=== PATIENT | female | born 1965 | race Caucasian/White ===

== ENCOUNTER 2017-09-11 15:28 | Emergency (ER) | payer BC ==
[~2017-09-11] VITALS: Ht 160 cm; Wt 93.0 kg
[~2017-09-11 15:28] MED LIST: DIAZ-351 PO; MILN50TA PO; SYN0.025T PO; TRAM50TA2 PO
[2017-09-11 16:01] LABS: BASOPHILS % (AUTO) 0.5 % (0-1); EOSINOPHILS # (AUTO) 0.1 X10'3 (0-0.9); EOSINOPHILS % (AUTO) 1.8 % (0-6); HEMATOCRIT 39.7 % (35.0-45.0); HEMOGLOBIN 13.5 g/dl (12.0-16.0); LYMPHOCYTES # (AUTO) 2.2 X10'3 (1.1-4.8); LYMPHOCYTES % (AUTO) 28.1 % (21-51); MEAN CORPUSCULAR HEMOGLOBIN 31.5 PG (27.0-31.0); MEAN CORPUSCULAR HGB CONC 34.1 % (33.0-36.5); MEAN CORPUSCULAR VOLUME 92.5 FL (78-98); MEAN PLATELET VOLUME 8.8 FL (7.4-10.4); MONOCYTES # (AUTO) 0.4 X10'3 (0-0.9); MONOCYTES % (AUTO) 5.3 % (2-12); NEUTROPHILS % (AUTO) 64.3 % (42-75); PLATELET COUNT 276 X10'3 (140-440); RED BLOOD COUNT 4.29 X10'6 (4.20-5.60); RED CELL DISTRIBUTION WIDTH 14.1 % (11.5-14.5); WHITE BLOOD COUNT 7.7 X10'3 (4.5-11.0)
[2017-09-11 16:18] LABS: ALANINE AMINOTRANSFERASE 32 U/L (12-78); ALKALINE PHOSPHATASE 134 IU/L (46-116); ANION GAP 11 (8-16); ASPARTATE AMINO TRANSFERASE 29 U/L (10-37); BILIRUBIN,TOTAL 0.5 MG/DL (0.1-1.0); BLOOD UREA NITROGEN 23 MG/DL (7-18); BUN/CREATININE RATIO 19.3 (6.6-38.0); CALCIUM 10.1 MG/DL (8.5-10.1); CHLORIDE 107 MMOL/L (99-107); CREATININE 1.19 MG/DL (0.40-0.90); GLUCOSE 79 MG/DL (70-104); POTASSIUM 3.5 MMOL/L (3.5-5.1); SODIUM 144 MMOL/L (135-145); TOTAL CARBON DIOXIDE 25.9 MMOL/L (24-32); TOTAL PROTEIN 8.2 G/DL (6.4-8.2); eGFR 47 ML/MIN
[2017-09-11 21:02] VITALS: BP 158/93
== END 2017-09-11 21:04 | disposition home or self-care (01) ==
LOC: ER 15:29
DX: R07.89 Other chest pain (principal); N28.9 Disorder of kidney and ureter, unspecified; E86.0 Dehydration; R11.10 Vomiting, unspecified; R42 Dizziness and giddiness; R06.02 Shortness of breath; I10 Essential (primary) hypertension; G43.909 Migraine, unspecified, not intractable, without status migrainosus; Z88.8 Allergy status to other drugs, medicaments and biological substances; Z79.899 Other long term (current) drug therapy
CPT/HCPCS: 36415; 71045; 80053; 84484; 85025; 93005; 99285

== ENCOUNTER 2018-05-09 10:19 | Emergency (ER) | payer BC ==
[~2018-05-09] VITALS: Ht 162.6 cm; Wt 90.0 kg
[2018-05-09 11:14] LABS: BASOPHILS % (AUTO) 0.7 % (0-1); EOSINOPHILS % (AUTO) 0 % (0-6); HEMOGLOBIN 13.8 g/dl (12.0-16.0); LYMPHOCYTES # (AUTO) 1.8 X10'3 (1.1-4.8); LYMPHOCYTES % (AUTO) 29.6 % (21-51); MEAN CORPUSCULAR HGB CONC 33.7 % (33.0-36.5); MEAN CORPUSCULAR VOLUME 95.1 FL (78-98); MEAN PLATELET VOLUME 8.5 FL (7.4-10.4); MONOCYTES # (AUTO) 0.4 X10'3 (0-0.9); MONOCYTES % (AUTO) 6.3 % (2-12); NEUTROPHILS # (AUTO) 3.8 X10'3 (1.8-7.7); NEUTROPHILS % (AUTO) 63.4 % (42-75); PLATELET COUNT 303 X10'3 (140-440); RED BLOOD COUNT 4.31 X10'6 (4.20-5.60); RED CELL DISTRIBUTION WIDTH 13.6 % (11.5-14.5)
[2018-05-09 11:27] LABS: PARTIAL THROMBOPLASTIN TIME 28 SECONDS (22-32); PROTHROMBIN TIME 9.8 SECONDS (9.0-12.0)
[2018-05-09 11:30] LABS: ALANINE AMINOTRANSFERASE 62 U/L (12-78); ALBUMIN 3.8 G/DL (3.4-5.0); ALBUMIN/GLOBULIN RATIO 0.9 (1.1-1.5); ALKALINE PHOSPHATASE 223 IU/L (46-116); ANION GAP 9 (8-16); ASPARTATE AMINO TRANSFERASE 48 U/L (10-37); BILIRUBIN,TOTAL 0.5 MG/DL (0.1-1.0); BLOOD UREA NITROGEN 10 MG/DL (7-18); BUN/CREATININE RATIO 11.1 (6.6-38.0); CALCIUM 9.6 MG/DL (8.5-10.1); CHLORIDE 105 MMOL/L (99-107); GLUCOSE 99 MG/DL (70-104); POTASSIUM 4.3 MMOL/L (3.5-5.1); SODIUM 143 MMOL/L (135-145); TOTAL CARBON DIOXIDE 29.1 MMOL/L (24-32); eGFR 65 ML/MIN
[2018-05-09 12:09] VITALS: BP 124/81
== END 2018-05-09 12:11 | disposition home or self-care (01) ==
LOC: ER 10:20
DX: I10 Essential (primary) hypertension (principal); Z88.8 Allergy status to other drugs, medicaments and biological substances; Z79.899 Other long term (current) drug therapy
CPT/HCPCS: 36415; 71045; 80053; 84484; 85025; 85610; 85730; 93005; 99285

== ENCOUNTER 2022-03-04 09:20 | Emergency (ER) | payer MEDICARE, BC ==
[2022-03-04] MEDS ORDERED: VALA500T41 PO (09:55)
[2022-03-04] MEDS ORDERED: METO-411 PO (09:55)
[2022-03-04] MEDS ORDERED: CYCL-1 PO (09:55)
[2022-03-04] MEDS ORDERED: URSO300C2 (09:55)
[2022-03-04] MEDS ORDERED: MELO-102 PO (09:55)
[2022-03-04 10:20] LABS: BASOPHILS # (AUTO) 0.1 X10'3 (0-0.2); BASOPHILS % (AUTO) 0.9 % (0-1); EOSINOPHILS # (AUTO) 0.1 X10'3 (0-0.9); EOSINOPHILS % (AUTO) 1.8 % (0-6); HEMATOCRIT 37.5 % (35.0-45.0); HEMOGLOBIN 12.8 g/dl (12.0-16.0); LYMPHOCYTES # (AUTO) 1.8 X10'3 (1.1-4.8); LYMPHOCYTES % (AUTO) 28.8 % (21-51); MEAN CORPUSCULAR HEMOGLOBIN 33.1 PG (27.0-31.0); MEAN CORPUSCULAR HGB CONC 34.1 g/dL (33.0-36.5); MEAN CORPUSCULAR VOLUME 97.1 FL (78-98); MONOCYTES # (AUTO) 0.5 X10'3 (0-0.9); MONOCYTES % (AUTO) 7.9 % (2-12); NEUTROPHILS # (AUTO) 3.7 X10'3 (1.8-7.7); NEUTROPHILS % (AUTO) 60.6 % (42-75); PLATELET COUNT 264 X10'3 (140-440); RED BLOOD COUNT 3.86 X10'6 (4.20-5.60); RED CELL DISTRIBUTION WIDTH 12.9 % (11.5-14.5); WHITE BLOOD COUNT 6.1 X10'3 (4.5-11.0)
[2022-03-04 10:38] LABS: ALANINE AMINOTRANSFERASE 25 U/L (12-78); ALBUMIN 3.7 G/DL (3.4-5.0); ALKALINE PHOSPHATASE 135 IU/L (46-116); ANION GAP 8 (8-16); ASPARTATE AMINO TRANSFERASE 21 U/L (10-37); BILIRUBIN,TOTAL 0.5 MG/DL (0.1-1.0); BLOOD UREA NITROGEN 8 MG/DL (7-18); BUN/CREATININE RATIO 8.6 (6.6-38.0); CALCIUM 9.1 MG/DL (8.5-10.1); CHLORIDE 108 MMOL/L (99-107); CREATININE 0.93 MG/DL (0.40-0.90); GLUCOSE 111 MG/DL (70-104); POTASSIUM 3.5 MMOL/L (3.5-5.1); SODIUM 145 MMOL/L (135-145); TOTAL CARBON DIOXIDE 28.6 MMOL/L (24-32); TOTAL PROTEIN 7.3 G/DL (6.4-8.2); eGFR 62 ML/MIN
[2022-03-04 11:32] VITALS: BP 164/93
== END 2022-03-04 11:20 | disposition home or self-care (01) ==
LOC: ER 09:21
DX: R55 Syncope and collapse (principal); R42 Dizziness and giddiness; I10 Essential (primary) hypertension; G43.909 Migraine, unspecified, not intractable, without status migrainosus; M79.7 Fibromyalgia; Z72.89 Other problems related to lifestyle; Z88.8 Allergy status to other drugs, medicaments and biological substances; Z79.899 Other long term (current) drug therapy; Z79.2 Long term (current) use of antibiotics
CPT/HCPCS: 36415; 71045; 80053; 83880; 84484; 85025; 93005; 99285

== ENCOUNTER 2024-07-07 17:09 | Emergency (ER) | payer MEDICARE, BC ==
[~2024-07-07] VITALS: Ht 162.6 cm; Wt 88.4 kg
[~2024-07-07 17:09] MED LIST changes: +BUPR300T53 PO; -DIAZ-351 PO; +LEVO100T PO; +LISI10TA27 PO; +METO100T7 PO; -MILN50TA PO; -SYN0.025T PO; -TRAM50TA2 PO; +URSO300C2 PO; +VALA500T41 PO
[2024-07-07 17:15] VITALS: BP 180/82; PULSE 66; O2SAT 98
[2024-07-07] MEDS ORDERED: iohexol 350MG/ML 100ml bottle IV ONE (17:20)
[2024-07-07 17:37] LABS: STREP A SCREEN NEGATIVE (Neg)
[2024-07-07 19:09] VITALS: RESP 16; TEMP 98.5
== END 2024-07-07 19:09 | disposition home or self-care (01) ==
LOC: ER 17:09
DX: J39.2 Other diseases of pharynx (principal); H92.01 Otalgia, right ear; I10 Essential (primary) hypertension; M79.7 Fibromyalgia; G43.909 Migraine, unspecified, not intractable, without status migrainosus; Z88.8 Allergy status to other drugs, medicaments and biological substances; Z79.899 Other long term (current) drug therapy
CPT/HCPCS: 87081; 87880; 99283; Q9967

== ENCOUNTER 2024-10-04 02:48 | Emergency (ER) | payer MEDICARE, BC ==
[~2024-10-04] VITALS: Ht 162.6 cm; Wt 80.5 kg
[2024-10-04 03:25] LABS: BASOPHILS # (AUTO) 0.1 X10'3 (0-0.2); BASOPHILS % (AUTO) 0.7 % (0-1); EOSINOPHILS # (AUTO) 0.1 X10'3 (0-0.9); EOSINOPHILS % (AUTO) 0.9 % (0-6); HEMATOCRIT 38.8 % (35.0-45.0); HEMOGLOBIN 13.2 g/dl (12.0-16.0); LYMPHOCYTES # (AUTO) 1.9 X10'3 (1.1-4.8); MEAN CORPUSCULAR HEMOGLOBIN 32.9 PG (27.0-31.0); MEAN CORPUSCULAR VOLUME 96.7 FL (78-98); MEAN PLATELET VOLUME 8.7 FL (7.4-10.4); MONOCYTES # (AUTO) 0.6 X10'3 (0-0.9); MONOCYTES % (AUTO) 7.9 % (2-12); NEUTROPHILS # (AUTO) 4.5 X10'3 (1.8-7.7); NEUTROPHILS % (AUTO) 63.5 % (42-75); PLATELET COUNT 294 X10'3 (140-440); RED BLOOD COUNT 4.01 X10'6 (4.20-5.60); WHITE BLOOD COUNT 7.1 X10'3 (4.5-11.0)
[2024-10-04 03:32] LABS: BILIRUBIN,URINE NEGATIVE (Neg); CLARITY,URINE SLIGHTLY CLOUDY (Clear); COLOR,URINE YELLOW (Yellow); GLUCOSE, URINE NEGATIVE (Neg); KETONES,URINE 15 mg/dl (Neg); LEUKOCYTE ESTERASE ,URINE NEGATIVE (Neg); NITRITES, URINE NEGATIVE (Neg); OCCULT BLOOD,URINE LARGE (Neg); PROTEIN,URINE 30 mg/dl (Neg); UROBILINOGEN,URINE 0.2 E.U/dL (0.2-1.0)
[2024-10-04 03:35] LABS: UA COLLECTION TYPE CLN CATCH MIDSTREAM
[2024-10-04] MEDS: ondansetron/PF 4mg/2ml inj IV ONE (03:38)
[2024-10-04] MEDS: ketorolac trometh 15mg/ml vial 15 MG/ML ML IV ONE (03:38)
[2024-10-04] MEDS: famotidine/PF 10 mg/ml inj IV ONE (03:38)
[2024-10-04] MEDS: normal saline 1000ml 1,000 ML IV ONE (03:39)
[2024-10-04] MEDS: fentaNYL/PF 50MCG/1 ML 2ML syringe IV ONE (03:39)
[2024-10-04 03:42] LABS: ALANINE AMINOTRANSFERASE 20 U/L (12-78); ALBUMIN/GLOBULIN RATIO 1.4 (1.1-1.5); ALKALINE PHOSPHATASE 105 IU/L (46-116); ANION GAP 9 (8-16); ASPARTATE AMINO TRANSFERASE 13 U/L (10-37); BILIRUBIN,TOTAL 0.8 MG/DL (0.1-1.0); BLOOD UREA NITROGEN 21 MG/DL (7-18); BUN/CREATININE RATIO 24.1 (10.0-20.0); CALCIUM 9.6 MG/DL (8.5-10.1); CHLORIDE 107 MMOL/L (99-107); CREATININE 0.87 MG/DL (0.40-0.90); GLUCOSE 108 MG/DL (70-104); LIPASE 41 U/L (16-77); POTASSIUM 4.7 MMOL/L (3.5-5.1); SODIUM 144 MMOL/L (135-145); TOTAL PROTEIN 6.8 G/DL (6.4-8.2); eCRCL 59 ML/MIN; eGFR 66 ML/MIN
[2024-10-04 03:43] LABS: BACTERIA,URINE 2+ /HPF (Neg); MUCUS STRANDS MODERATE /LPF (Neg); RBC,URINE 50-100 /HPF (0-2); SQUAMOUS EPITHELIAL CELL,UR FEW /LPF (FEW)
[2024-10-04] MEDS: HYDROcodone/acetaminophen 5mg/325mg tablet PO ONE (04:29)
[2024-10-04] MEDS ORDERED: HYDR-3965 PO (04:42)
[2024-10-04] MEDS ORDERED: TAMS-55 PO (04:42)
[2024-10-04] MEDS ORDERED: ONDA-245 PO (04:42)
[2024-10-04 04:53] VITALS: BP 130/74; PULSE 74; RESP 18; TEMP 98; O2SAT 100
== END 2024-10-04 04:55 | disposition home or self-care (01) ==
LOC: ER 02:49
DX: N20.0 Calculus of kidney (principal); E11.9 Type 2 diabetes mellitus without complications; I10 Essential (primary) hypertension; G43.909 Migraine, unspecified, not intractable, without status migrainosus; M79.7 Fibromyalgia; Z88.8 Allergy status to other drugs, medicaments and biological substances
CPT/HCPCS: 36415; 74176; 80053; 81001; 83690; 84145; 85025; 87088; 96361; 96374; 96375; 99285; J1885; J2405; J3010; J3490; J7030

== ENCOUNTER 2024-12-12 16:16 | Emergency (ER) | payer MEDICARE, BC ==
[~2024-12-12] VITALS: Ht 162.6 cm; Wt 78.0 kg
[~2024-12-12 16:16] MED LIST changes: +ONDA-245 PO
[2024-12-12 16:32] VITALS: BP 160/77; PULSE 56; O2SAT 100
--- NOTE | 2024-12-12 16:38 | Physician Documentation ---
History of Present Illness Chief Complaint: Abdominal Pain Stated Complaint: KIDNEY STONE Primary Medical Doctor: Dr. Cordoba HPI This 59-year-old female with a history of kidney stones presents with 4-5 days of progressively worsening lower abdominal pain radiating to her back, patient reports no fevers, dysuria or hematuria. Patient reports pain moves around in her abdomen though has been mostly in the left lower quadrant, pain is described as cramping. Patient reports recent loose bowel movements described as mucousy, patient reports no blood in stool. Patient reports she has been feeling nauseous and taking previously prescribed Zofran though has not had episodes of vomiting. Medication Reconciliation Allergies: Coded Allergies: morphine (Verified Allergy, Unknown, 12/12/24) venlafaxine (Verified Allergy, Unknown, HIVES, 12/12/24) Scheduled Bupropion HCl (Wellbutrin Xl), 1 TAB PO QAM, (Reported) Levothyroxine Sodium (Synthroid), 1 TAB PO DAILY, (Reported) Lisinopril (Lisinopril), 20 MG PO DAILY, (Reported) Metoprolol Succinate* (Toprol Xl*), 1 TAB PO DAILY, (Reported) Ondansetron 8mg ODT (Ondansetron Odt), 1 TAB PO Q6H Silodosin (Rapaflo), 1 CAP PO DAILY Ursodiol (Ursodiol), 600 MG PO BID, (Reported) Valacyclovir HCl (Valacyclovir), 1 TAB PO Q48H, (Reported) Scheduled PRN Hydrocodone Bit/Acetaminophen 5/325 MG (Ozone 5/325 MG), 1 TAB PO Q6H PRN for pain Past Medical History Past Medical History: Migraine, Hypertension, Fibromyalgia Past Surgical History: no surgical history Alcohol Use: Sober Drug Use: none Lives with: Family Lives In: Home Review of Systems ROS Left lower quadrant abdominal pain as stated above in the HPI, otherwise all systems are reviewed and negative. Physical Exam Vital Signs: Temperature: 97.6, Source: Temporal, Heart Rate: 56, Respiratory Rate: 18, BP: 160/77, Pulse Oximetry: 100, Weight: 78.000 Physical Exam VITALS: Reviewed and as above. GENERAL: Alert, nontoxic appearing, no apparent distress. RESPIRATORY: No increased work of breathing, no respiratory distress, speaking in full clear sentences, clear lung sounds in all razo CV: Regular rate and rhythm no murmur BACK: No CVA tenderness GI: Left lower quadrant tender to palpation, nondistended, soft, no rebound, no guarding, bowel sounds present MUSCULOSKELETAL: SKIN: No ecchymosis to skin of back or abdomen Progress Results/Orders Results/Orders Vital Signs 12/12/24 16:32 Temp 97.6 Pulse 56 Resp 18 B/P (MAP) 160/77 Pulse Ox 100 EKG/XRAY/CT/US/VASC/MRI CT : Impression Exam: CT CT ABDOMEN PELVIS W/ IV CONTRAST History: LLQ Abd Pain Comparison Study: CT CT ABDOMEN PELVIS on DOS: 10/04/24 TECHNIQUE: A digital floor specialist image was obtained. During the uneventful, intravenous administration of contrast material, multislice data acquisition was obtained through the abdomen and pelvis. The data set was subsequently reconstructed into axial images. Images reviewed on a wrist examination is an examination of axial and multiplanar reformations using a variety of window levels and settings. RADIATION DOSE: DLP 20.3 mGy.cm; CTDI vol 906.78 mGy. Findings: Lungs: Minimal basilar atelectasis. Heart: No cardiomegaly or pericardial effusion. Liver: Unremarkable. Gallbladder: Unremarkable. Spleen: Unremarkable Pancreas: Unremarkable Adrenals: Unremarkable Kidneys: There is a 5 mm calculus situated within the mid/ distal left ureter. There is upstream moderate hydroureteronephrosis and enhancement of the ureter. Additional regions of hyperdensity are seen within the upstream ureter with an abnormal contour. There is a delayed left nephrogram. There is a too small to characterize left renal lesion. The right kidney is unremarkable. GI tract: No bowel obstruction. No CT evidence of appendicitis. : Status post hysterectomy. Vasculature: Unremarkable Lymphadenopathy: Absent Peritoneum: No ascites Musculoskeletal: Unremarkable Soft tissues: Unremarkable Impression: 1. 5 mm calculus situated within the mid/distal left ureter with moderate upstream hydroureteronephrosis. Abnormal attenuation is seen within the upstream ureter which may reflect stricturing though additional stones or neoplasm cannot be excluded. Further clinical correlation suggested. 2. Incidental findings as detailed. Electronically Signed by:WANDA LARRY MD Date & Time: 12/12/242144 Dictated by: WANDA LARRY MD Dictation date and time: 12/12/242144 I have reviewed and agree with the radiology report. I have reviewed and interpreted the imaging as: Calculus to left mid ureter Medical Decision Making Findings This 59-year-old female with history of kidney stones presented with left lower quadrant abdominal pain, due to the location of pain and patient description of associated GI symptoms a CT of the abdomen and pelvis was obtained, CT of the abdomen and pelvis which demonstrated a 5 cm mildly obstructing calculus to the left ureter with [id number]-[id number] hydronephrosis, otherwise CT did not demonstrate evidence of acute intra-abdominal process. Patient responded well to pain medication reporting significant decrease in pain. It was reassuring the remainder of physical exam was benign and patient had stable vital signs, lab work did not demonstrate evidence of significant metabolic or electrolyte derangement and did not demonstrate evidence of systemic infection. Urinalysis did not demonstrate evidence of infection, increased WBCs in urinalysis likely attributed to hematuria due to stone passage. Patient is appropriate for outpatient follow up, reassuring patient already has a scheduled appointment with urologist. Patient provided home care instructions and return to care precautions which she verbalized understanding of. I have discussed with the patient the risks of addiction and overdose associated with use of opioids, including the increased risk of addiction to an opioid for an individual who is suffering from both mental and substance abuse disorders. I have discussed with the patient the danger of taking an opioid with a benzodiazepine, alcohol, or another central nervous system depressant. Cures report run and checked prior to narcotic prescribing. Differential Dx:Considerations: Include: Appendicitis, Bowel obstruction, Cholangitis, Cholelithasis, Constipation, Diverticular disease, Gastritis/PUD, Gastroenteritis, Hernia, Inflammatory BD, Ischemic bowel, Ovarian cyst/torsion, Pancreatitis, Urinary obstruction, Urinary tract infection, Urolithiasis Departure Disposition: 01 HOME / SELF CARE / HOMELESS Impression: Primary Impression: Kidney stone Condition: Improved Discharge Instructions: Kidney Stones Additional Instructions: Please take the Flomax as prescribed to help pass the kidney stone, contact your urologist to see about moving your appointment up otherwise follow up as scheduled. Please follow up with your primary care provider in the next few days. Please return to the emergency department for any new or worsening concerning symptoms. You may use saeq-tis-oawgnrh ibuprofen and or Tylenol as needed for pain as directed by the [id number]-[id number] packaging. For breakthrough pain you may use the prescribed Ozone, be aware that the Ozone also contains the same active ingredient as Tylenol, so do not take more than the recommended amount of Tylenol as directed on the yddw-lbq-ateslce packaging. You have been prescribed an opioid medication, there are risks of addiction and overdose associated with the use of opioids. The risk of addiction to an opioid for increases for those suffering both from mental health and substance use disorders. The use of an opioid while taking other central nervous system depressants including but not limited to benzodiazepines or alcohol, or other opioids increases the risk of serious side effects that can include overdose or respiratory depression that can lead to serious injury or . Referrals: NO PRIMARY CARE PROVIDER (PCP) Prescriptions Silodosin (Rapaflo) 8 Mg Capsule 1 CAP PO DAILY for 30 Days, #30 CAP 0 Refills Prov: MARGARET DOSHI 12/12/24 Hydrocodone Bit/Acetaminophen 5/325 MG (Ozone 5/325 MG) 5 Mg/325 Mg Tablet 1 TAB PO Q6H PRN for pain, #12 TAB Prov: MARGARET DOSHIP 12/12/24 Education Educated: Patient Educated regarding: diagnosis, treatment, prognosis, need for follow up Additional Comment Medical Screen Exam History: This 59-year-old female with a history of kidney stones presents with 4-5 days of progressively worsening lower abdominal pain radiating to her back, patient reports no fevers, dysuria or hematuria. Exam: VITALS: Reviewed and as above. GENERAL: Alert, nontoxic appearing, no apparent distress. RESPIRATORY: No increased work of breathing, no respiratory distress, speaking in full clear sentences MSE performed in triage and patient returned to ED lobby by nursing staff The note accurately reflects work and decisions made by me.JERRY Powers 12/12/24 16:38 Signature Scribe Signature: No scribe Attestation: The note accurately reflects work and decisions made by me.JERRY Powers 12/13/24 01:58 MARGARET DOSHI Dec 12, 2024 16:38
[2024-12-12 17:14] LABS: BASOPHILS % (AUTO) 0.5 % (0-1); EOSINOPHILS # (AUTO) 0.1 X10'3 (0-0.9); EOSINOPHILS % (AUTO) 1.3 % (0-6); HEMATOCRIT 38.3 % (35.0-45.0); HEMOGLOBIN 12.7 g/dl (12.0-16.0); LYMPHOCYTES # (AUTO) 1.6 X10'3 (1.1-4.8); LYMPHOCYTES % (AUTO) 23.4 % (21-51); MEAN CORPUSCULAR HEMOGLOBIN 32.4 PG (27.0-31.0); MEAN CORPUSCULAR HGB CONC 33.2 g/dL (33.0-36.5); MEAN CORPUSCULAR VOLUME 97.5 FL (78-98); MEAN PLATELET VOLUME 8.8 FL (7.4-10.4); MONOCYTES # (AUTO) 0.5 X10'3 (0-0.9); MONOCYTES % (AUTO) 7.5 % (2-12); NEUTROPHILS # (AUTO) 4.7 X10'3 (1.8-7.7); NEUTROPHILS % (AUTO) 67.3 % (42-75); PLATELET COUNT 268 X10'3 (140-440); RED BLOOD COUNT 3.93 X10'6 (4.20-5.60)
[2024-12-12 17:50] LABS: ALANINE AMINOTRANSFERASE 35 U/L (12-78); ALBUMIN 3.8 G/DL (3.4-5.0); ALBUMIN/GLOBULIN RATIO 1.1 (1.1-1.5); ALKALINE PHOSPHATASE 116 IU/L (46-116); AMYLASE 65 U/L (25-115); ANION GAP 7 (8-16); ASPARTATE AMINO TRANSFERASE 19 U/L (10-37); BILIRUBIN,TOTAL 0.6 MG/DL (0.1-1.0); BLOOD UREA NITROGEN 17 MG/DL (7-18); BUN/CREATININE RATIO 13.1 (10.0-20.0); CALCIUM 9.4 MG/DL (8.5-10.1); CHLORIDE 107 MMOL/L (99-107); GLUCOSE 94 MG/DL (70-104); LIPASE 97 U/L (16-77); POTASSIUM 4.2 MMOL/L (3.5-5.1); SODIUM 143 MMOL/L (135-145); TOTAL CARBON DIOXIDE 28.8 MMOL/L (24-32); TOTAL PROTEIN 7.3 G/DL (6.4-8.2); eCRCL 39 ML/MIN; eGFR 42 ML/MIN
[2024-12-12 19:16] LABS: BILIRUBIN,URINE NEGATIVE (Neg); COLOR,URINE STRAW (Yellow); GLUCOSE, URINE NEGATIVE (Neg); KETONES,URINE TRACE mg/dl (Neg); LEUKOCYTE ESTERASE ,URINE NEGATIVE (Neg); NITRITES, URINE NEGATIVE (Neg); OCCULT BLOOD,URINE MODERATE (Neg); PROTEIN,URINE NEGATIVE (Neg); UROBILINOGEN,URINE 0.2 E.U/dL (0.2-1.0)
[2024-12-12 19:19] LABS: UA COLLECTION TYPE NON-SPECIFIED
[2024-12-12 19:24] LABS: BACTERIA,URINE FEW /HPF (Neg); CLARITY,URINE CLEAR (Clear); MUCUS STRANDS FEW /LPF (Neg); SQUAMOUS EPITHELIAL CELL,UR FEW /LPF (FEW)
[2024-12-12 20:21] VITALS: RESP 16
[2024-12-12] MEDS: ketorolac trometh 15mg/ml vial 15 MG/ML ML IV ONE (20:21)
[2024-12-12] MEDS ORDERED: iohexol 300mg/ml 100ml inj. ONE (21:03)
--- NOTE | 2024-12-12 21:48 | RADIOLOGY REPORT ---
Exam: CT CT ABDOMEN PELVIS W/ IV CONTRAST History: LLQ Abd Pain Comparison Study: CT CT ABDOMEN PELVIS on DOS: 10/04/24 TECHNIQUE: A digital automotive tire testing supervisor image was obtained. During the uneventful, intravenous administration of c ontrast material, multislice data acquisition was obtained through the abdomen and pelvis. The data s et was subsequently reconstructed into axial images. Images reviewed on a wrist examination is an exa mination of axial and multiplanar reformations using a variety of window levels and settings. RADIATION DOSE: DLP 20.3 mGy.cm; CTDI vol 906.78 mGy. Findings: Lungs: Minimal basilar atelectasis. Heart: No cardiomegaly or pericardial effusion. Liver: Unremarkable. Gallbladder: Unremarkable. Spleen: Unremarkable Pancreas: Unremarkable Adrenals: Unremarkable Kidneys: There is a 5 mm calculus situated within the mid/ distal left ureter. There is upstream mode rate hydroureteronephrosis and enhancement of the ureter. Additional regions of hyperdensity are seen within the upstream ureter with an abnormal contour. There is a delayed left nephrogram. There is a too small to characterize left renal lesion. The right kidney is unremarkable. GI tract: No bowel obstruction. No CT evidence of appendicitis. : Status post hysterectomy. Vasculature: Unremarkable Lymphadenopathy: Absent Peritoneum: No ascites Musculoskeletal: Unremarkable Soft tissues: Unremarkable Impression: 1. 5 mm calculus situated within the mid/distal left ureter with moderate upstream hydroureteronephro sis. Abnormal attenuation is seen within the upstream ureter which may reflect stricturing though ad ditional stones or neoplasm cannot be excluded. Further clinical correlation suggested. 2. Incidental findings as detailed.
[2024-12-12] MEDS ORDERED: HYDR-3965 PO (22:19)
[2024-12-12] MEDS ORDERED: SILO8CAP2 PO (22:19)
[2024-12-12 22:53] VITALS: TEMP 97.6
== END 2024-12-12 22:55 | disposition home or self-care (01) ==
LOC: ER 16:16
DX: N20.0 Calculus of kidney (principal); R10.32 Left lower quadrant pain; I10 Essential (primary) hypertension; G43.909 Migraine, unspecified, not intractable, without status migrainosus; M79.7 Fibromyalgia; Z88.5 Allergy status to narcotic agent; Z88.8 Allergy status to other drugs, medicaments and biological substances
CPT/HCPCS: 36415; 74177; 80053; 81001; 82150; 83690; 85025; 87088; 96374; 99285; J1885; Q9967

== ENCOUNTER 2025-06-04 09:21 | Emergency (ER) | payer MEDICARE, BC ==
[~2025-06-04] VITALS: Ht 162.6 cm; Wt 73.3 kg
[~2025-06-04 09:21] MED LIST changes: +SILO8CAP2 PO
[2025-06-04 09:33] VITALS: TEMP 97.4
--- NOTE | 2025-06-04 11:10 | Physician Documentation ---
History of Present Illness ~ Chief Complaint: Back Pain Stated Complaint: BACK PAIN Time Seen by MD: 10:36 Primary Medical Doctor: [facility] HPI This is a 59-year-old female who presents with lumbar back pain onset after a panel of wood caused her to fall and strike her back against a wooden fence, patient reports injury occurred five days prior. Patient reports no new weakness or numbness in extremities and no loss of bowel or bladder control. Medication Reconciliation Allergies: Coded Allergies: morphine (Verified Allergy, Intermediate, ITCHING, 06/04/25) venlafaxine (Verified Allergy, Unknown, HIVES, 06/04/25) Scheduled Bupropion HCl (Wellbutrin Xl), 1 TAB PO QAM, (Reported) Cyclobenzaprine HCl (Cyclobenzaprine HCl), 1 TAB PO Q8H Ibuprofen (Ibuprofen), 1 TAB PO Q8H Levothyroxine Sodium (Synthroid), 1 TAB PO DAILY, (Reported) Lidocaine (Lidoderm), 1 PATCH TOP DAILY Lisinopril (Lisinopril), 20 MG PO DAILY, (Reported) Metoprolol Succinate* (Toprol Xl*), 1 TAB PO DAILY, (Reported) Ondansetron 8mg ODT (Ondansetron Odt), 1 TAB PO Q6H Silodosin (Rapaflo), 1 CAP PO DAILY Ursodiol (Ursodiol), 600 MG PO BID, (Reported) Valacyclovir HCl (Valacyclovir), 1 TAB PO Q48H, (Reported) Past Medical History Past Medical History: Migraine, Hypertension, Fibromyalgia Past Surgical History: no surgical history Alcohol Use: Sober Drug Use: none Lives with: Family Lives In: Home Review of Systems ROS As stated above in the HPI, otherwise all systems are reviewed and negative. Physical Exam Physical Exam Vital Signs: Temperature: 97.4, Source: Oral, Heart Rate: 61, Respiratory Rate: 16, BP: 136/75, Pulse Oximetry: 100, Weight: 73.300 Oxygen Flow Rate: 0 Physical Exam VITALS: Reviewed and as above. GENERAL: Alert, nontoxic appearing, no apparent distress. RESPIRATORY: No increased work of breathing, no respiratory distress, speaking in full clear sentences BACK: No central spinal tenderness to palpation, no tenderness to palpation NEURO: Able to toe-walk and heel-walk Progress Results/Orders Results/Orders Orders - TICO,MARGARET W ROLLER BEARING INSPECTOR Lumbar Spine Limited (06/04/25 11:04) Completed Orders - MARGARET DOSHI ROLLER BEARING INSPECTOR Lumbar Spine Limited (06/04/25 11:04) Ketorolac Trometh 15mg/Ml Vial (Toradol (06/04/25 11:50) Cyclobenzaprine Tablet (Flexeril Tablet) (06/04/25 11:50) Lidocaine 5% Patch (Lidoderm 5% Patch) (06/04/25 11:50) Vital Signs 06/04/25 06/04/25 06/04/25 09:33 11:55 12:12 Temp 97.4 Pulse 61 61 Resp 16 16 13 B/P (MAP) 136/75 118/82 Pulse Ox 100 96 O2 Flow Rate 0 EKG/XRAY/CT/US/VASC/MRI Bone/Soft Tissue X-Ray (Spine) : Additional Comment Exam: LUMBAR SPINE LIMITED EXAM: DI LUMBAR SPINE LIMITED HISTORY: Low back pain post fall COMPARISON: None TECHNIQUE: AP and lateral views of the lumbar spine and spot lateral of the lumbosacral junction were performed. FINDINGS: No fracture or listhesis of the lumbar spine. There are Thoracolumbar and lumbosacral transitional vertebrae. There is mild degenerative disc disease and moderate facet arthropathy. IMPRESSION: Degenerative changes of the lumbar spine without evidence of fracture. Electronically Signed by:LEVI CORDOVA MD Date & Time: 06/04/25 113 Dictated by: LEVI CORDOVA MD Dictation date and time: 06/04/25 113 I have reviewed and agree with the radiology report. I have reviewed and interpreted the imaging as: No vertebral fractures Medical Decision Making Additional information obtaine: N/A Findings This is a 59-year-old female who presented with low back pain after a large board fell and caused her to fall backwards striking her back on a wooden fence, physical exam was reassuring without tenderness to central spine or low back, additionally reassuring patient reported no high risk factors IVDA, cancer, significant weight loss or history of TB, and the patient has a normal neurologic exam without fever, severe or progressive neurologic deficits, new or worsening urinary retention, urinary/stool incontinence or decreased perineal sensation. Due to traumatic onset of pain imaging was obtained though did not demonstrate evidence of vertebral fracture. I doubt epidural hematoma, epidural abscess, unstable spinal pathology, emergent renal or aortic pathology, or spinal cord compression. Upon discharge, the patients pain was controlled, and the patient was ambulatory without a risk of falling. Return precautions were discussed including worsening pain, new/worsening weakness/numbness, difficulty urinating, or incontinence. Differential Dx:Considerations: AAA, Aortic dissection, Appendicitis, Bowel obstruction, Cholelithiasis, Cholangitis, Fracture, Musculoskeletal pain, Pancreatitis, Pyelonephritis, Strain, Urinary obstruction, Urolithiasis, Ovarian torsion, Renal infarction, Urinary tract infection, Other (Spinal injury, spinal fracture, cauda equina) Departure Time of Disposition: 11:58 Disposition: HOME / SELF CARE / HOMELESS Impression: Primary Impression: Low back pain Qualified Codes: M54.50 - Low back pain, unspecified Condition: Improved Discharge Instructions: Acute Back Pain, Adult Additional Instructions: Your imaging was reassuring, please use the prescribed medications for low back pain, follow up with your primary care provider promptly as you may require further imaging and or physical therapy which must be referred through your primary care. Please follow up with your primary care provider in the next few days. Please return to the emergency department for any new or worsening concerning symptoms. Do not take naproxen or ibuprofen for the next 10 hours as you received a injection of Toradol in the emergency department which replaces naproxen and ibuprofen. Do not take the prescribed muscle relaxer( cyclobenzaprine) in combination with alcohol or other drugs that make you drowsy and do not drive or operate heavy machinery while under the influence of this medication. Referrals: NO PRIMARY CARE PROVIDER (PCP) Prescriptions Lidocaine (Lidoderm) 5 % Adh..patch 1 PATCH TOP DAILY for 30 Days, #10 PATCH 0 Refills may wear up to 12 hours Prov: MARGARET DOSHI [facility] 06/04/25 Ibuprofen (Ibuprofen) 800 Mg Tablet 1 TAB PO Q8H for pain for 10 Days, #30 TAB 0 Refills Prov: MARGARET DOSHIP 06/04/25 Cyclobenzaprine HCl (Cyclobenzaprine HCl) 10 Mg Tablet 1 TAB PO Q8H for muscle spasms for 10 Days, #30 TAB Prov: MARGARET DOSHI [facility] 06/04/25 Education Educated: Patient Educated regarding: diagnosis, treatment, prognosis, need for follow up Signature Scribe Signature: No scribe Attestation: The note accurately reflects work and decisions made by me.JERRY Powers 06/04/25 20:51 MARGARET DOSHI Jun 04, 2025 11:10
--- NOTE | 2025-06-04 11:36 | RADIOLOGY REPORT ---
EXAM: DI LUMBAR SPINE LIMITED HISTORY: Low back pain post fall COMPARISON: None TECHNIQUE: AP and lateral views of the lumbar spine and spot lateral of the lumbosacral junction were performed. FINDINGS: No fracture or listhesis of the lumbar spine. There are Thoracolumbar and lumbosacral transitional vertebrae. There is mild degenerative disc disease and moderate facet arthropathy. IMPRESSION: Degenerative changes of the lumbar spine without evidence of fracture.
[2025-06-04] MEDS: ketorolac trometh 15mg/ml vial 15 MG/ML ML IM ONE (11:55)
[2025-06-04] MEDS ORDERED: CYCL-394 PO (12:04)
[2025-06-04] MEDS ORDERED: IBUP-1986 PO (12:04)
[2025-06-04] MEDS ORDERED: LIDO-52 TOP (12:04)
[2025-06-04 12:12] VITALS: BP 118/82; PULSE 61; RESP 13; O2SAT 96
== END 2025-06-04 12:15 | disposition home or self-care (01) ==
LOC: ER 09:22
DX: M54.50 Low back pain, unspecified (principal); I10 Essential (primary) hypertension; M79.7 Fibromyalgia; G43.909 Migraine, unspecified, not intractable, without status migrainosus; Z88.5 Allergy status to narcotic agent; Z88.8 Allergy status to other drugs, medicaments and biological substances; Z79.899 Other long term (current) drug therapy
CPT/HCPCS: 72100; 96372; 99283; J1885